=== PATIENT | female | born 1965 | race Caucasian/White ===

== ENCOUNTER 2021-06-20 08:25 | Day surgery (SDC) | payer OTHER, SELFPAY ==
[~2021-06-20] VITALS: Ht 157.5 cm; Wt 63.0 kg
[2021-06-20] MEDS ORDERED: fentaNYL citrate 0.05 MG/ML VIAL ONE (11:27)
[2021-06-20] MEDS ORDERED: LIDOCAINE 2% 100 MG/5 ML UJET TP ONE (11:27)
[2021-06-20] MEDS: fentaNYL citrate 0.05 MG/ML VIAL IVP ONE (11:34)
[2021-06-20] MEDS: LIDOCAINE 2% 100 MG/5 ML UJET TP ONE (11:43)
== END 2021-06-20 12:30 | disposition home or self-care (01) ==
LOC: MMU 08:25 → MDS 08:25
PROVIDERS: ATTEND Internal Medicine Gastroenterology
DX: Z12.11 Encounter for screening for malignant neoplasm of colon (principal); D12.4 Benign neoplasm of descending colon; K57.30 Diverticulosis of large intestine without perforation or abscess without bleeding; Z79.899 Other long term (current) drug therapy; Z20.822 Contact with and (suspected) exposure to COVID-19
CPT/HCPCS: 45385; J3010; U0003